=== PATIENT | male | born 1965 | race Caucasian/White ===

== ENCOUNTER 2016-08-22 15:48 | Emergency (ER) | payer OTHER ==
[2016-08-22] MEDS ORDERED: IBUPROFEN 600 MG TABLET (FP) PO ONE ×2 (16:10→16:20)
[2016-08-22 16:20] VITALS: BMI 32.3
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
[2016-08-22 16:52] VITALS: BP 119/78; PULSE 93; TEMP 98.1
== END 2016-08-22 16:53 | disposition home or self-care (01) ==
LOC: JER 15:48
DX: S29.012A Strain of muscle and tendon of back wall of thorax, initial encounter (principal); X02.0XXA Exposure to flames in controlled fire in building or structure, initial encounter; X50.0XXA Overexertion from strenuous movement or load, initial encounter; Y93.89 Activity, other specified; Y92.61 Building [any] under construction as the place of occurrence of the external cause; Y99.0 Civilian activity done for income or pay
CPT/HCPCS: 72070-TC; 99282-25

== ENCOUNTER 2018-02-10 14:01 | Emergency (ER) | payer OTHER ==
[2018-02-10 14:12] VITALS: TEMP 97.8; BMI 33.0
[2018-02-10] MEDS ORDERED: ACETAMINOPHEN 325 MG TABLET (FP) PO ONE (14:15)
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
[2018-02-10] MEDS ORDERED: ACETAMINOPHEN 325 MG TABLET (FP) ONE (14:20)
[2018-02-10 15:38] VITALS: BP 129/88; PULSE 78
== END 2018-02-10 15:15 | disposition home or self-care (01) ==
LOC: JER 14:01
DX: M54.12 Radiculopathy, cervical region (principal); V86.41XA Person injured while boarding or alighting from ambulance or fire engine, initial encounter; Y92.488 Other paved roadways as the place of occurrence of the external cause; Y93.89 Activity, other specified; Y99.0 Civilian activity done for income or pay; I10 Essential (primary) hypertension
CPT/HCPCS: 73030-TC-LT-FY; 99282-25

== ENCOUNTER 2022-06-12 09:17 | Emergency (ER) | payer OTHER ==
[2022-06-12 09:35] VITALS: BP 142/80; PULSE 69; RESP 19; TEMP 97.6; BMI 31.4
[2022-06-12] MEDS ORDERED: ALBUTEROL SO4 2.5/IPRATROPIUM 0.5 INH SOL 3 ML VIAL.NEB. NEB ONE ×2 (10:33→10:42)
[2022-06-12] MEDS ORDERED: KETOROLAC TROMETHAMINE 30 MG/1 ML VIAL IM ONE (10:34)
[2022-06-12] MEDS ORDERED: KETOROLAC TROMETHAMINE 30 MG/1 ML VIAL ONE (10:42)
[2022-06-12 11:47] LABS: BASO % 1.1 % (0-2.0); EOS % 1.7 % (0-4.5); HEMATOCRIT 41.9 % (35.4-49); HEMOGLOBIN 14.1 GM/dL (11.7-16.9); LYMPH % 22.7 % (8-40); MCH 30.8 pg (25.7-33.7); MCHC 33.8 g/dl (32.0-35.9); MEAN CELL VOLUME 91.1 fl (80-96); MEAN PLT VOLUME 8.1 fl (7.5-11.1); MONO % 9.7 % (3.8-10.2); NEUT % 64.8 % (42.8-82.8); PLATELET COUNT 262 10^3/uL (134-434); RDW 13.5 % (11.9-15.9)
[2022-06-12 12:49] LABS: ALBUMIN 3.9 g/dl (3.4-5.0); BLOOD UREA NITROGEN 17.4 mg/dL (7-18)
[2022-06-12 12:52] LABS: CREATININE 0.9 mg/dL (0.55-1.3)
[2022-06-12 12:53] LABS: BILIRUBIN,TOTAL 0.7 mg/dL (0.2-1); TOT PROT 7.1 g/dl (6.4-8.2)
== END 2022-06-12 13:01 | disposition home or self-care (01) ==
LOC: JER 09:17 → JERFT 09:17
PROC: 3E0233Z Introduction of Anti-inflammatory into Muscle, Percutaneous Approach (ICD-10-PCS; principal; 2022-06-12)
PROC: 3E0F7GC Introduction of Other Therapeutic Substance into Respiratory Tract, Via Natural or Artificial Opening (ICD-10-PCS; 2022-06-12)
DX: T59.811A Toxic effect of smoke, accidental (unintentional), initial encounter (principal); J70.5 Respiratory conditions due to smoke inhalation; M54.10 Radiculopathy, site unspecified; M54.2 Cervicalgia; W20.8XXA Other cause of strike by thrown, projected or falling object, initial encounter; Y93.I9 Activity, other involving external motion; Y99.0 Civilian activity done for income or pay
CPT/HCPCS: 36415; 71046-TC-FY; 72125-TC; 80053; 82375; 85025; 99285-25

== ENCOUNTER 2023-07-21 07:46 | Emergency (ER) | payer OTHER ==
[2023-07-21 08:03] VITALS: BP 148/83; PULSE 85; RESP 18; TEMP 98; BMI 33.5
[2023-07-21] MEDS ORDERED: LIDOCAINE 4% PATCH TP ONE (08:54)
[2023-07-21] MEDS ORDERED: METHOCARBAMOL 500 MG TABLET ONE (08:54)
[2023-07-21] MEDS ORDERED: KETOROLAC TROMETHAMINE 30 MG/1 ML VIAL ONE (08:54)
[2023-07-21] MEDS: LIDOCAINE 4% PATCH TP ONE (09:02)
[2023-07-21] MEDS: METHOCARBAMOL 500 MG TABLET PO ONE (09:02)
[2023-07-21] MEDS: KETOROLAC TROMETHAMINE 30 MG/1 ML VIAL IM ONE (09:02)
== END 2023-07-21 09:59 | disposition home or self-care (01) ==
LOC: JER 07:46
PROC: 2W3FX1Z Immobilization of Left Hand using Splint (ICD-10-PCS; principal; 2023-07-21)
DX: M54.50 Low back pain, unspecified (principal); X50.1XXA Overexertion from prolonged static or awkward postures, initial encounter; Y93.89 Activity, other specified
CPT/HCPCS: 99284-25

== ENCOUNTER 2024-01-14 22:21 | Emergency (ER) | payer OTHER ==
[2024-01-14 22:35] VITALS: BP 142/86; PULSE 64; RESP 20; TEMP 98.2; BMI 31.8
[2024-01-14] MEDS ORDERED: METOCLOPRAMIDE HCL INJECTION 10 MG/2 ML VIAL ONE (23:00)
[2024-01-14] MEDS ORDERED: ACETAMINOPHEN INJECTION 100 ML ONE (23:00)
[2024-01-14] MEDS: SODIUM CHLORIDE 0.9% 500 ML INFUS.BAG IV ONE (23:26)
[2024-01-14] MEDS: ACETAMINOPHEN 1000 MG/100 ML BAG IVPB ONE (23:26)
[2024-01-14] MEDS: METOCLOPRAMIDE HCL INJECTION 10 MG/2 ML VIAL IVPB ONE (23:45)
[2024-01-15] MEDS ORDERED: DEXAMETHASONE SOD PHOSPHATE 10 MG/1 ML VIAL ONE (01:14)
[2024-01-15] MEDS ORDERED: KETOROLAC TROMETHAMINE 15 MG/ML VIAL ONE (01:14)
[2024-01-15] MEDS: DEXAMETHASONE SOD PHOSPHATE 10 MG/1 ML VIAL IVPUSH ONE (01:30)
[2024-01-15] MEDS: KETOROLAC TROMETHAMINE 15 MG/ML VIAL IVPUSH ONE (01:30)
== END 2024-01-15 02:23 | disposition home or self-care (01) ==
LOC: JER 22:21
PROC: 3E033NZ Introduction of Analgesics, Hypnotics, Sedatives into Peripheral Vein, Percutaneous Approach (ICD-10-PCS; principal; 2024-01-14)
PROC: 3E033GC Introduction of Other Therapeutic Substance into Peripheral Vein, Percutaneous Approach (ICD-10-PCS; 2024-01-15)
PROC: 3E0333Z Introduction of Anti-inflammatory into Peripheral Vein, Percutaneous Approach (ICD-10-PCS; 2024-01-15)
DX: R51.9 Headache, unspecified (principal)
CPT/HCPCS: 70450-TC; 70486-TC; 99284-25; J0131; J1100